=== PATIENT | female | born 1995 | race Caucasian/White ===

== ENCOUNTER → 2017-08-16 | Outpatient (CLI) | payer OTHER ==
--- NOTE | 2017-08-16 16:15 | ECHOCARDIOGRAM REPORT ---
*NOTICE TO RECEIVING CONSTITUTION PARTY AGENCY This information is strictly Confidential and protected under [place] law. [place] law prohibits you from making any further disclosure of this information unless further disclosure is expressly permitted by the written consent of the person to whom it pertains or is authorized by law. A general authorization for the release of medical or other information is not sufficient for this purpose. Hospital accepts no responsibility if the information is made available to any other person, INCLUDING THE PATIENT. Interpretation Summary * Name: VINCE MORSE Study Date: 08/16/2017 01:52 PM BP: 114/47 mmHg * Patient Location: [facility] HR: 65 * : 1995 (M/d/yyyy) Gender: Female Height: 63 in * Age: 21 yrs Ethnicity: CA Weight: 125 lb * Ordering Physician: Jasmin Galvan * Referring Physician: Jasmin Galvan * Performed By: Cheryl Dominguez RDCS * * Reason For Study: Ventricular Septal Defect * BSA: 1.6 m2 * -- Conclusions -- * Left ventricular systolic function is normal. * No regional wall motion abnormalities noted. * Ejection Fraction = 65-70%. * There is no ventricular septal defect visualized. Procedure Details * A complete two-dimensional transthoracic echocardiogram was performed (2D, M-mode, Doppler and color flow Doppler). Left Ventricle * The left ventricle is normal in size. * There is no ventricular septal defect visualized. * There is normal left ventricular wall thickness. * Ejection Fraction = 65-70%. * Left ventricular systolic function is normal. * No regional wall motion abnormalities noted. Right Ventricle * The right ventricle is normal size. * The right ventricular systolic function is normal as assessed by tricuspid annular plane systolic excursion (TAPSE) (normal >1.5 cm). Atria * The left atrial size is normal. * Right atrial size is normal. * No ASD detected; PFO is not assessed. Mitral Valve * The mitral valve anatomy is normal. * There is no mitral valve stenosis. * Significant mitral regurgitation is absent. Tricuspid Valve * The tricuspid valve anatomy is normal. * There is no tricuspid stenosis. * There is trace tricuspid regurgitation. Aortic Valve * The aortic valve is normal in structure and function. * No hemodynamically significant valvular aortic stenosis. * There is no significant aortic regurgitation. Pulmonic Valve * The pulmonary valve is not well seen, but the Doppler examination is normal without significant regurgitation or stenosis. Great Vessels * The aortic root is normal size. * The pulmonary is not well visualized. Pericardium/Pleural * There is no pericardial effusion. Great Vessels * Normal inferior vena cava size and collapsability with sniff indicates a normal right atrial pressure of 3 mmHg MMode 2D Measurements and Calculations IVSd 0.59 cm IVSs 0.94 cm LVIDd 4.5 cm LVIDs 2.8 cm LVPWd 0.89 cm LVPWs 1.3 cm IVS/LVPW 0.66 FS 37.8 % EDV(Teich) 93.8 ml ESV(Teich) 30.0 ml EF(Teich) 68.0 % EDV(cubed) 92.9 ml ESV(cubed) 22.4 ml EF(cubed) 75.9 % % IVS thick 59.9 % % LVPW thick 49.7 % LV mass(C)d 103.8 grams LV mass(C)dI 65.5 grams/m\S\2 LV mass(C)s 91.9 grams LV mass(C)sI 58.0 grams/m\S\2 SV(Teich) 63.8 ml SI(Teich) 40.3 ml/m\S\2 SV(cubed) 70.5 ml SI(cubed) 44.5 ml/m\S\2 LA dimension 2.5 cm LVAd ap4 24.0 cm\S\2 LVLd ap4 7.4 cm EDV(MOD-sp4) 66.5 ml EDV(sp4-el) 65.7 ml LVAs ap4 11.8 cm\S\2 LVLs ap4 5.8 cm ESV(MOD-sp4) 20.0 ml ESV(sp4-el) 20.2 ml EF(MOD-sp4) 69.9 % EF(sp4-el) 69.2 % LVAd ap2 25.4 cm\S\2 LVLd ap2 7.6 cm EDV(MOD-sp2) 71.1 ml EDV(sp2-el) 72.3 ml LVAs ap2 13.4 cm\S\2 LVLs ap2 6.1 cm ESV(MOD-sp2) 25.2 ml ESV(sp2-el) 24.9 ml EF(MOD-sp2) 64.6 % EF(sp2-el) 65.5 % LVLd %diff 2.1 % EDV(MOD-bp) 69.7 ml LVLs %diff 4.7 % ESV(MOD-bp) 23.0 ml EF(MOD-bp) 66.9 % SV(MOD-sp4) 46.5 ml SI(MOD-sp4) 29.3 ml/m\S\2 SV(MOD-sp2) 45.9 ml SI(MOD-sp2) 29.0 ml/m\S\2 SV(MOD-bp) 46.6 ml SI(MOD-bp) 29.4 ml/m\S\2 SV(sp4-el) 45.5 ml SI(sp4-el) 28.7 ml/m\S\2 SV(sp2-el) 47.4 ml SI(sp2-el) 29.9 ml/m\S\2 Doppler Measurements and Calculations MV E max estefany 92.7 cm/sec MV A max estefany 70.4 cm/sec MV E/A 1.3 MV dec time 0.32 sec Ao V2 max 170.6 cm/sec Ao max PG 11.6 mmHg Ao max PG (full) 4.8 mmHg LV V1 max PG 6.8 mmHg LV V1 max 130.6 cm/sec
== END | disposition home or self-care (01) ==
LOC: C.CPL 13:41
PROVIDERS: ATTEND Family Medicine
DX: Q21.0 Ventricular septal defect (principal)